=== PATIENT | male | born 1935 | race African-American/Black ===

== ENCOUNTER → 2019-03-28 | Outpatient (CLI) | payer MEDICARE, BC ==
--- NOTE | 2019-03-28 13:25 | RAD ---
RENAL COMPLETE BILATERAL History: CKD stage III Comparison: August 01, 2017 Findings: Multiple sonographic images of the kidneys and urinary bladder are submitted. Right kidney measured 11.1 x 4.2 x 4.1 cm. Left kidney measured 10.5 x 5 x 4.3 cm. There is no hydronephrosis of either kidney. Urinary bladder is not well-visualized as decompressed by Barraza catheter Impression: 1. There is no hydronephrosis of either kidney. Electronically signed by: Shilo Salas MD (03/28/2019 1:22 PM) [id number]
== END | disposition home or self-care (01) ==
LOC: US 10:45
PROVIDERS: ATTEND Nurse Practitioner Adult Health
DX: N18.3 Chronic kidney disease, stage 3 (moderate) (principal)
CPT/HCPCS: 76770